=== PATIENT | male | born 1975 | race Caucasian/White ===

== ENCOUNTER 2024-12-07 07:36 | Outpatient (OUT) | payer OTHER, SELFPAY ==
--- OUTSIDE RECORDS SUMMARY | 2024-12-07 07:38 | XMS_ITS | Clinical Summary ---
Author Organization [facility] Healthcare Address [address] [place] [address] Care Team Providers Care Garment Manufacturer Name Role Phone Unavailable Primary Care Provider Unavailabl e Social History Tobacco Use Types Packs/Day Years Used Date Smoking Tobacco: Never Assessed Sex and Gender Information Value Date Recorded Sex Assigned at Not on file Legal Sex Male 8:01 PM EDT Gender Identity Not on file Sexual Orientation Not on file Last Filed Vital Signs Vital Sign Reading Time Taken Comments Blood Pressure 163/98 11/09/2021 12:00 PM EDT Pulse - - Temperature - - Respiratory Rate - - Oxygen Saturation - - Inhaled Oxygen Concentration - - Weight 125 kg (275 lb) 04/13/2020 12:00 PM EST Height 175.3 cm (5' 9 ) 02/01/2021 12:00 PM EDT Body Mass Index 40.61 04/13/2020 12:00 PM EST Plan of Treatment Not on file
--- OUTSIDE RECORDS SUMMARY | 2024-12-07 07:38 | XMS_ITS | Encounter Summary ---
Author Organization [employer] s tem Address [id number] [address] [place] [address] Care Team Providers Care Jukebox Operator Name Role Phone Jean-Pierre Singleton Primary Care Provider [phone] [phone] Reason for Visit * Reason Onset Date Comments Med Refill 08/16/2022 Encounter Details Date Type Department Care Team (Late st Contact Info) Description 08/16/2022 Refill [facility] [address] [place] [phone] Allison Felipe LPN Arthritis of carpometacarpal (CMC) joint of both thumbs Social History Tobacco Use Types Packs/Day Years Used Date Smoking Tobacco: Former Smokeless Tobacco: Never Alcohol Use Standard Drinks/Week Comments Yes 0 (1 standard drink = 0.6 oz pur e alcohol) occasional Childcare Answer Date Recorded Childcare Unknown 07/22/2020 Employment Answer Date Recorded Employment Unknown 07/22/2020 Purpose - Life Answer Date Recorded Purpose and direction in life Unknown Sex and Gender Information Value Date Recorded Sex Assigned at Not on file Legal Sex Male 10:30 AM EST Gender Identity Not on file Sexual Orientation Not on file documented as of this encounter Plan of Treatment Upcoming Encounters Date Type Department Care Team (Late st Contact Info) Description 01/20/2025 7:30 AM EDT Office Visit [facility] [address] [place] [address] Rick Cast MD [address] [place], [place] [id number] 02/27/2025 7:00 AM EDT Office Visit [facility] [address] [facility] [place] [phone] Anderson Alexandra MD [address] [facility] [place] [address] documented as of this encounter Visit Diagnoses Diagnosis Arthritis of carpometacarpal (CMC) joint of both thumbs documented in this encounter Care Teams Jukebox Operator Relationship Specialty Start Date End Date Jean-Pierre Singleton DO PCP - General Family Medicine 08/03/20 documented as of this encounter
--- OUTSIDE RECORDS SUMMARY | 2024-12-07 07:38 | XMS_ITS | Encounter Summary ---
Author Organization [employer] Address [id number] [address] [place] [address] Care Team Providers Care Photograph Printer Name Role Phone Areli Jean-Pierre [place] BLAKELY Primary Care Provider [phone] [phone] Encounter Details Date Type Department Care Team (Late st Contact Info) Description 03/25/2021 Telephone [facility] [address] [place] [address] Allison Felipe LPN Social History Tobacco Use Types Packs/Day Years [...] on file Sexual Orientation Not on file COVID-19 Exposure Response Date Recorded In the last month, have you been in contact with someone who was confirmed or suspected to have Coronavirus / COVID-19? No / Unsure 02/23/2021 8:15 AM EDT documented as of this encounter Miscellaneous Notes * Telephone Encounter - Allison Felipe LPN - 03/25/2021 5:14 PM EDT Urbano Thakur called said the pharmacy has not received the narpoxen at the pharmacy . Pharmacy is [facility]. Patient called asking about the script. On 03/25/2021 * Telephone Encounter - Rick Ramon MD - 03/25/2021 5:14 PM EDT Sent the naproxen script to pharmacy just now. Thanks, Dr. Villeda documented in this encounter Plan of Treatment Upcoming Encounters Date Type Department Care Team (Late st Contact Info) Description 01/20/2025 7:30 AM EDT Office Visit [facility] [address] [place] [phone] Rick Cast MD [address] [place], [place] [id number] 02/27/2025 7:00 AM EDT Office Visit [facility] [address] [place] [phone] Anderson Alexadnra MD [address] [place], [place] [id number] documented as of this encounter Visit Diagnoses Not on filedocumented in this encounter Care Teams Photograph Printer Relationship Specialty Start Date End Date Jean-Pierre Singleton DO PCP - General Family Medicine 08/03/20 documented as of this encounter
--- OUTSIDE RECORDS SUMMARY | 2024-12-07 07:38 | XMS_ITS | Encounter Summary ---
Author Organization [employer] Address [id number] [address] [place] [address] Care Team Providers Care Repairer Sash And Door Name Role Phone KaneJean-Pierre pastor Primary Care Provider [phone] [phone] Encounter Details Date Type Department Care Team (Late st Contact Info) Description 11/21/2022 Telephone [facility] [address] [place] [address] Allison Felipe LPN Social History [...] on file documented as of this encounter Miscellaneous Notes * Telephone Encounter - Allison Felipe LPN - 11/21/2022 4:39 PM EDT I received a call from the patient asking for a refill on mobic last refill was on 08/16/2022 15mg 1 tab y mouth in the morning Quantity 30 tabs. Pt would like us to send the script to [facility]. * Telephone Encounter - Rick Ramon MD - 11/21/2022 4:39 PM EDT Yes that sounds good. Go ahead with the refill as you typed up. Thanks documented in this encounter Plan of Treatment Upcoming Encounters Date Type Department Care Team (Late st Contact Info) Description 01/20/2025 7:30 AM EDT Office Visit [facility] [address] [place] [phone] Rick Cast MD [address] [place], [place] [id number] 02/27/2025 7:00 AM EDT Office Visit [facility] [address] [place] [phone] Anderson Alexandra MD [address] [facility] [place] [address] documented as of this encounter Visit Diagnoses Not on filedocumented in this encounter Care Teams Repairer Sash And Door Relationship Specialty Start Date End Date Jean-Pierre Singleton DO PCP - General Family Medicine 08/03/20 documented as of this encounter
--- OUTSIDE RECORDS SUMMARY | 2024-12-07 07:38 | XMS_ITS | Encounter Summary ---
Author Organization [facility] [employer] Address [id number] [address] [place] [address] Care Team Providers Care Mechanical Engineering Coop Name Role Phone Areli Jean-Pierre [place] BLAKELY Primary Care Provider [phone] [phone] Encounter Details Date Type Department Care Team (Late st Contact Info) Description 08/11/2022 Telephone [facility] [address] [place] [address] Allison Felipe LPN Social History [...] Telephone Encounter - Allison Felipe LPN - 08/11/2022 5:02 PM EST I received a call from patient letting us know he switched Ins. From [facility] to [facility]. Pt is asking for a refill of Meloxicam 15 mg. I advised patient that I will ask Dr. Cast about his refill and send it to [facility] of [facility]. Pt voiced understanding. * Telephone Encounter - Rick Ramon MD - 08/11/2022 5:02 PM EST Yes that is fine if you could send him a refill. Thank you documented in this encounter Plan of Treatment Upcoming Encounters Date Type Department Care Team (Late st Contact Info) Description 01/20/2025 7:30 AM EDT Office Visit [facility] [address] [place] [phone] Rick Cast MD [address] [place], [place] [id number] 02/27/2025 7:00 AM EDT Office Visit [facility] [address] [place] [phone] Anderson Alexandra MD [address] [place] [address] documented as of this encounter Visit Diagnoses Not on filedocumented in this encounter Care Teams Mechanical Engineering Coop Relationship Specialty Start Date End Date Jean-Pierre Singleton DO PCP - General Family Medicine 08/03/20 documented as of this encounter
--- OUTSIDE RECORDS SUMMARY | 2024-12-07 07:38 | XMS_ITS | Encounter Summary ---
Author Organization [facility] tem Address [id number] [address] [place] [address] Care Team Providers Care Felt Strip Finisher Name Role Phone Jean-Pierre Singleton Primary Care Provider [phone] [phone] Encounter Details Date Type Department Care Team (Late Contact Info) Description 10/27/2020 Telephone [facility] [address] [place] [address] Transcribe, Orders Support User Social History Tobacco Use Types Packs/Day Years [...] have Coronavirus / COVID-19? No / Unsure 10/27/2020 3:08 PM EDT documented as of this encounter Plan of Treatment Upcoming Encounters Date Type Department Care Team (Late Contact Info) Description 01/20/2025 7:30 AM EDT Office Visit [facility] [address] [facility] [address] [place] [address] Rick Cast MD [address] [place] [address] 02/27/2025 7:00 AM EDT Office Visit [facility] [address] [facility] [place] [phone] Anderson Alexandra MD [address] [facility] [place] [address] documented as of this encounter Visit Diagnoses Not on filedocumented in this encounter Care Teams Felt Strip Finisher Relationship Specialty Start Date End Date Jean-Pierre Singleton DO PCP - General Family Medicine 08/03/20 documented as of this encounter
[2024-12-07 07:52] LABS: Basophils Absolute Auto 0.1 10^3/uL (0.0-0.1); Basophils Percent Auto 0.8 % (0.2-2.0); Eosinophils Absolute Auto 0.1 10^3/uL (0.0-0.7); Eosinophils Percent Auto 1.3 % (0.9-7.0); Hematocrit 44.6 % (42.0-54.0); Hemoglobin 14.9 g/dL (14.0-18.0); Immature Granulocytes Abs Auto 0.01 10^3/uL (0.00-0.03); Immature Granulocytes Pct Auto 0.1 % (0.0-0.5); Lymphocytes Absolute Auto 2.2 10^3/uL (1.2-3.8); Lymphocytes Percent Auto 30.7 % (20.5-60.0); Mean Corpuscular HGB Conc 33.4 g/dL (29.9-35.2); Mean Corpuscular Hemoglobin 30.5 pg (25.9-34.0); Mean Corpuscular Volume 91.2 fL (80.0-94.0); Mean Platelet Volume 10.3 fL (9.5-13.5); Monocytes Absolute Auto 0.5 10^3/uL (0.3-0.8); Monocytes Percent Auto 6.6 % (1.7-12.0); Neutrophils Absolute Auto 4.3 10^3/uL (1.4-6.5); Neutrophils Percent Auto 60.5 % (43.0-75.0); Platelet Count 278 10^3/uL (150-450); Red Blood Count 4.89 10^6/uL (4.70-6.10); Red Cell Distribution Width 12.9 % (11.0-15.0); White Blood Count 7.1 10^3/uL (4.0-11.0)
[2024-12-07 08:07] LABS: Creatinine Urine Random 14.15 mg/dL (20.00-300.00)
[2024-12-07 08:08] LABS: Estimated Average Glucose 114 mg/dL; Glycohemoglobin A1C 5.6 % (4.5-6.2)
[2024-12-07 08:17] LABS: Microalbumin Urine Random <1.3 mg/dL (<=30.0)
[2024-12-07 08:20] LABS: Alanine Aminotransferase 44 U/L (16-63); Albumin Globulin Ratio 1.1; Albumin Level 3.8 g/dL (3.4-5.0); Alkaline Phosphatase 89 U/L (46-116); Anion Gap 15.8; Aspartate Amino Transferase 17 U/L (15-37); BUN Creatinine Ratio 14.5; Bilirubin Total 0.5 mg/dL (0.2-1.0); Carbon Dioxide 24.5 mmol/L (21.0-32.0); Chloride 111 mmol/L (98-107); Chol HDL Ratio 2.6; Cholesterol 140 mg/dL (<=200); Estimated GFR (African America >60 (>=60 mL/min/1.73m^2); Estimated GFR (Non-African Ame >60 (>=60 mL/min/1.73m^2); Globulin 3.5 g/dL; Glucose 100 mg/dL (74-106); HDL Cholesterol 53 mg/dL (40-60); LDL Cholesterol Calculated 63.6 mg/dL; Potassium 4.3 mmol/L (3.5-5.1); Sodium 147 mmol/L (136-145); TSH W/ REFLEX FT4 1.699 uIU/mL (0.358-3.740); Total Protein 7.3 g/dL (6.4-8.2); Triglycerides 117 mg/dL (<=150); VLDL CHOLESTEROL 23.4 mg/dL
[2024-12-07 09:59] LABS: Prostate Specific Antigen Scrn 4.31 ng/mL (<=4.00)
== END 2024-12-07 07:37 | disposition home or self-care (01) ==
LOC: LAB 07:36
PROVIDERS: PCP Student in an Organized Health Care Education/Training Program; Visit Provider Student in an Organized Health Care Education/Training Program
DX: E11.42 Type 2 diabetes mellitus with diabetic polyneuropathy (principal); I10 Essential (primary) hypertension; Z13.228 Encounter for screening for other metabolic disorders; Z13.6 Encounter for screening for cardiovascular disorders; E78.2 Mixed hyperlipidemia; Z12.5 Encounter for screening for malignant neoplasm of prostate; E66.01 Morbid (severe) obesity due to excess calories
CPT/HCPCS: 36415; 80053; 80061; 82043; 82570; 83036; 84443; 85025; G0103